=== PATIENT | female | born 1985 | race Caucasian/White ===

== ENCOUNTER 2018-07-12 00:15 | Emergency (ER) | payer OTHER ==
[2018-07-12] MEDS ORDERED: Sodium Chloride 0.9% 1,000 ML IV ONE (00:44)
--- NOTE | 2018-07-12 00:50 | C.PDOC ---
History Of Present Illness 33 year old female presents to the ED c/o sudden onset abdominal pain. Patient reports having done a month ago. Patient denies fever, chills, headache, CP, SOB, nausea, vomit, diarrhea, rash. Chief Complaint (Nursing): Abdominal Pain History Per: Patient History/Exam Limitations: no limitations Onset/Duration Of Symptoms: Sudden Onset Current Symptoms Are (Timing): Still Present Location Of Pain/Discomfort: Diffuse Quality Of Discomfort: "Pain" Associated Symptoms: denies: Nausea, Vomiting, Diarrhea, Urinary Symptoms Recent travel outside of the [place]: No Additional History Per: Patient Abnormal Vaginal Bleeding: No Past Medical History Reviewed: Historical Data, Nursing Documentation, Vital Signs Vital Signs: Last Vital Signs Temp 97.8 F 07/12/18 00:17 Pulse 69 07/12/18 00:17 Resp 18 07/12/18 00:17 BP 123/77 07/12/18 00:17 Pulse Ox 100 07/12/18 00:17 Primary Care Provider: Karie Fairbanks Medical History PMH: No Chronic Diseases Surgical History: Family History: States: Unknown Family Hx - Social History Hx Alcohol Use: No Hx Substance Use: No Review Of Systems Constitutional: Negative for: Fever, Chills Cardiovascular: Negative for: Chest Pain Respiratory: Negative for: Shortness of Breath Gastrointestinal: Positive for: Abdominal Pain. Negative for: Nausea, Vomiting Skin: Negative for: Rash Neurological: Negative for: Weakness, Numbness, Headache, Dizziness Physical Exam - Physical Exam Appears: Non-toxic, In Acute Distress Skin: Normal Color, Warm, Dry Head: Atraumatic, Normacephalic Eye(s): bilateral: Normal Inspection Oral Mucosa: Moist Neck: Normal ROM, Supple Chest: Symmetrical Cardiovascular: Rhythm Regular Respiratory: Normal Breath Sounds, No Rales, No Rhonchi, No Wheezing Gastrointestinal/Abdominal: Soft, Tenderness (mild, lower quadrants), No Guarding, No Rebound Extremity: Normal ROM, No Tenderness, No Swelling Neurological/Psych: Oriented x3, Normal Speech, Normal Cognition Gait: Steady ED Course And Treatment - Laboratory Results Result Diagrams: 07/12/18 01:07 07/12/18 01:07 O2 Sat by Pulse Oximetry: 100 (ON RA) Pulse Ox Interpretation: Normal - CT Scan/US CT abd/pelvis Other Rad Studies (CT/US): Read By Radiologist, Radiology Report Reviewed CT/US Interpretation: CT SCAN OF THE ABDOMEN AND PELVIS WITH CONTRAST. CLINICAL HISTORY: Tonight mid abdominal pain. No nausea vomiting or diarrhea. one month ago. TECHNIQUE: Multiple axial and coronal CT images were obtained through the abdomen and pelvis after administration of intravenous contrast material. COMMENTS: Bilateral basilar atelectatic pulmonary changes. 3 mm ri ght renal nonobstructing stone. Fluid-filled stomach. Fluid filled small bowels. Mild ileus versus developing gastroenteritis. The liver is of uniform attenuation without mass or defect. There is no intra or extrahepatic biliary ductal dilatation. The spleen is normal. The gallbladder is within normal limits. The pancreas is of normal contour and attenuation characteristics. There is no evidence of adrenal mass. Both kidneys demonstrate prompt and equal nephrograms. The kidneys are normal in size, shape and configuration. There is no evidence of renal or ureteral mass. No ureteral calculi are identified. There is no hydroureter or hydronephrosis. No evidence for appendicitis. There is no bowel wall thickening. No evidence for small or large bowel obstruction. There is no evidence of abdominal ascites or lymphadenopathy. There is no evidence of intrinsic or extrinsic bladder mass. There is no pelvic ascites or lymphadenopathy. Images of the lung bases show no evidence of pleural or parenchymal mass. There are no pleural effusions. The bony structures are free of lytic or blastic lesions. IMPRESSION: Bilateral basilar atelectatic pulmonary changes. 3 mm right renal nonobstructing stone. Fluid-filled stomach. Fluid filled small bowels. Mild ileus versus developing khoa roenteritis. Thank you for your kind referral of this patient. . Electronically signed on July 12, 2018 3:54:04 AM EDT by: Vladimir Bird M.D., Certified by SHELLI, MSK, Neuroradiology Medical Decision Making Medical Decision Making: Plan: * CT abd/pelvis * IV fluids * Toradol 30 mg IVP * Labs * UA Disposition Counseled Patient/Family Regarding: Diagnosis - Disposition Referrals: [facility] [Outside] Disposition: HOME/ ROUTINE Disposition Time: 04:05 Condition: STABLE Prescriptions: Naproxen 375 mg PO TIDPC #20 tablet Instructions: Viral Gastroenteritis, Kidney Stones in Adults, Acute Abdomen (Belly Pain), Adult (DC) Forms: [employer] (Tajik) - POA Present On Arrival: None - Clinical Impression Clinical Impression: Abdominal pain, Gastroenteritis, Kidney stone on right side - Scribe Statement The provider has reviewed the documentation as recorded by the Scribe Presley Flores All medical record entries made by the Scribe were at my direction and personally dictated by me. I have reviewed the chart and agree that the record accurately reflects my personal performance of the history, physical exam, medical decision making, and the department course for this patient. I have also personally directed, reviewed, and agree with the discharge instructions and disposition.
[2018-07-12] MEDS ORDERED: Iodixanol 320 MG/ML 100 ML BOTTLE IV ONE (00:54)
[2018-07-12 01:15] LABS: SQUAMOUS EPITHIAL < 1 /hpf (0-5); URINE BILIRUBIN NEGATIVE (NEGATIVE); URINE BLOOD NEGATIVE (NEGATIVE); URINE CLARITY Clear (Clear); URINE COLOR Yellow (YELLOW); URINE GLUCOSE (UA) NORMAL (Normal); URINE LEUKOCYTE ESTERASE TRACE Leu/uL (Negative); URINE PROTEIN NEGATIVE (NEGATIVE); URINE UROBILINOGEN NORMAL mg/dL (0.2-1.0)
[2018-07-12 01:21] LABS: BASO % 0.5 % (0.0-2.0); EOS # 0.1 K/uL (0.0-0.7); EOS % 1.9 % (0.0-4.0); HEMOGLOBIN 12.5 g/dL (11.0-16.0); LYMPH # 1.1 K/uL (1.0-4.3); LYMPH % 18.9 % (20.0-40.0); MEAN CELL VOLUME 81.2 fL (81.0-99.0); MEAN CORPUSCULAR HEMOGLOBIN 27.4 pg (27.0-31.0); MEAN CORPUSCULAR HGB CONC 33.7 g/dL (33.0-37.0); MEAN PLATELET VOLUME 9.7 fL (7.2-11.7); MONO # 0.4 K/uL (0.0-0.8); MONO % 6.4 % (0.0-10.0); NEUT # 4.3 K/uL (1.8-7.0); NEUT % 72.3 % (50.0-75.0); RBC 4.57 Mil/uL (3.80-5.20); RED CELL DISTRIBUTION WIDTH 15.5 % (11.5-14.5); WHITE BLOOD COUNT 5.9 K/uL (4.8-10.8)
[2018-07-12 01:33] LABS: ALB/GLOB RATIO 1.4 (1.0-2.1); ALBUMIN 3.8 g/dL (3.5-5.0); ALT/SGPT 88 U/L (9-52); AST/SGOT 173 U/L (14-36); BLOOD UREA NITROGEN 5 mg/dL (7-17); CALCIUM 9.1 mg/dl (8.6-10.4); GFR NON-AFRICAN AMERICAN > 60; LIPASE 322 U/L (23-300)
[2018-07-12 04:03] VITALS: BP 131/68; PULSE 87; RESP 16; TEMP 98.2
[2018-07-12 04:08] VITALS: O2SAT 100
[2018-07-12] MEDS ORDERED: Naproxen 550 mg Tab PO STA (04:23)
[2018-07-12] MEDS ORDERED: Naproxen 550 mg Tab PO ONE (04:31)
--- NOTE | 2018-07-12 09:00 | CT ---
Date of service: 07/12/2018 PROCEDURE: CT Abdomen and Pelvis without intravenous contrast HISTORY: mid abdominal pain COMPARISON: None. TECHNIQUE: Multiple contiguous axial images were performed through the abdomen and pelvis without the use of intravenous contrast. Subsequently, sagittal and coronal reformatted images were obtained. Radiation dose: Total exam DLP = 854.69 mGy-cm. This CT exam was performed using one or more of the following dose reduction techniques: Automated exposure control, adjustment of the mA and/or kV according to patient size, and/or use of iterative reconstruction technique. FINDINGS: LOWER THORAX: Atelectasis at the lung bases. LIVER: Prominent liver. Mild periportal edema. GALLBLADDER AND BILE DUCTS: Unremarkable. PANCREAS: Unremarkable. No gross lesion or ductal dilatation. SPLEEN: Unremarkable. ADRENALS: Unremarkable. No mass. KIDNEYS AND URETERS: 3.8 millimeter nonobstructive calculus in the upper pole of the right kidney. 5 millimeter hypodensity in the midpole of the left kidney, too small to adequately characterize. VASCULATURE: Unremarkable. No aortic aneurysm. No aortic atherosclerotic calcification or mural plaque present. BOWEL: Small hiatal hernia. Mild thickening of the stomach. Few mildly distended and thickened loops of small bowel in the upper mid abdomen which may represent a mild enteritis. Clinical correlation. Few scattered colonic diverticuli. APPENDIX: Unremarkable. Normal appendix. PERITONEUM: Unremarkable. No free fluid. No free air. LYMPH NODES: Unremarkable. No enlarged lymph nodes. BLADDER: Unremarkable. REPRODUCTIVE: Patient status post recent . Heterogeneous and prominent uterus likely related to postoperative changes. Clinical correlation. Correlation with pelvic ultrasound may be helpful if clinically indicated. BONES: No acute fracture. OTHER FINDINGS: Postsurgical changes seen within the anterior midline pelvic subcutaneous soft tissues. IMPRESSION: 1. Mild thickening of the stomach and proximal small bowel which may represent a mild gastritis and or enteritis. Clinical correlation. 2. 3 millimeter nonobstructive right renal calculus. 3. Bibasilar atelectatic changes. 4. Prominent liver. Mild periportal edema. 5. 5 millimeter hypodensity in the midpole of the left kidney, too small to adequately characterize. 6. Patient status post recent . Heterogeneous and prominent uterus likely related to postoperative changes. Clinical correlation. Correlation with pelvic ultrasound may be helpful if clinically indicated. 7. Postsurgical changes seen within the anterior midline pelvic subcutaneous soft tissues. A preliminary report was generated at 3:54 a.m. on 07/12/[address] Vladimir Bird from [facility] rad.
== END 2018-07-12 04:37 | disposition home or self-care (01) ==
LOC: C.ER 00:15
DX: K52.9 Noninfective gastroenteritis and colitis, unspecified (principal); N20.0 Calculus of kidney; R10.9 Unspecified abdominal pain
CPT/HCPCS: 74177; 80053; 81001; 83690; 84703; 85025; 96361; 96374; 99285; J1885; J7030; Q9967